=== PATIENT | female | born 1995 | race Two or more races ===

== ENCOUNTER 2023-12-11 12:48 | Emergency (ER) | payer MEDICAID, SELFPAY ==
--- NOTE | ~2023-12-11 | CT_ITS ---
EXAMINATION: CT ABDOMEN AND PELVIS WITH CONTRAST CLINICAL INFORMATION: Right lower quadrant pain. COMPARISON: None available. TECHNIQUE: Multidetector volumetric images were obtained from the superior aspect of the liver through the pubic symphysis following administration 85 mL of Omnipaque 350 intravenous contrast. Sagittal and coronal reformatted images were obtained on the technologist's workstation. Oral contrast: No This CT examination was performed using dose optimization techniques as appropriate, variously including the following: *Automated exposure control *Adjustment of mA and/or kV according to patient size (this includes techniques or standardized protocols for targeted exams where dose is matched to indication/reason for exam; i.e. extremities or head) *Use of iterative reconstruction technique DLP: 384 mGy-cm FINDINGS: LUNG BASES: The visualized lung bases are unremarkable. LIVER, GALLBLADDER, AND BILIARY TREE: The liver is normal in size, shape, and attenuation. No focal hepatic lesion or biliary ductal dilatation is present. The gallbladder is unremarkable with no evidence of radiopaque gallstones, gallbladder wall thickening, or obvious pericholecystic inflammatory changes. PANCREAS: Unremarkable. SPLEEN: Unremarkable. ADRENAL GLANDS: Unremarkable. KIDNEYS AND URETERS: The kidneys are normal in size, shape, and attenuation. No hydronephrosis, hydroureter, or calculi seen. No perinephric stranding. BLADDER: Unremarkable. GASTROINTESTINAL TRACT: The small and large bowel are unremarkable. The appendix is unremarkable. ABDOMINAL WALL: No significant hernia is appreciated. LYMPH NODES: Normal. VASCULAR: Unremarkable. PELVIC VISCERA: There uterus is significantly enlarged and lobular and heterogeneous with multiple apparent myometrial lesions measuring up to 8 cm. OSSEOUS STRUCTURES: Unremarkable. CT/CT abdomen pelvis w IV con IMPRESSION: 1. Significantly enlarged and lobular uterus with multiple apparent myometrial lesions measuring up to 8 cm. This may represent multiple fibroids. Recommend pelvic ultrasound for further characterization. 2. Normal appendix. Fleischner guidelines were followed.
--- NOTE | ~2023-12-11 | US_ITS ---
EXAMINATION: US PELVIS CLINICAL INFORMATION: Lower abdominal pain COMPARISON: None available. TECHNIQUE: Ultrasound of the pelvis is performed using both transabdominal and transvaginal transducers along with Doppler. Transvaginal imaging is performed due to inadequate visualization transabdominally. FINDINGS: Uterus: The uterus is enlarged and anteverted measuring 12.6 x 7.0 x 8.9 cm for a volume of 411 mL which includes a large mass, presumably a fibroid taking up most of the volume of the uterus measuring 8.1 x 6.6 x 7.5 cm. The double wall endometrial thickness could not be measured.. Adnexa: Both ovaries are visualized. There is normal color flow to the adnexa. There is no ovarian torsion. There is no pelvic ascites or fluid collection. Right ovary measures 4.2 x 1.5 x 2.5 cm for a volume of 8.3 mL Left ovary measures 3.7 x 2.5 x 2.2 cm for a volume of 10.7 mL which includes a 2 cm corpus luteum cyst. Incidental note is made of debris within the bladder. US/US pelvic ovarian doppler IMPRESSION: 1. Enlarged uterus with a large 8.1 cm mass, presumably a fibroid. 2. Incidental note made of debris within the bladder.
--- NOTE | ~2023-12-11 | US_ITS ---
EXAMINATION: US PELVIS CLINICAL INFORMATION: Lower abdominal pain COMPARISON: None available. TECHNIQUE: Ultrasound of the pelvis is performed using both transabdominal and transvaginal transducers along with Doppler. Transvaginal imaging is performed due to inadequate visualization transabdominally. FINDINGS: Uterus: The uterus is enlarged and anteverted measuring 12.6 x 7.0 x 8.9 cm for a volume of 411 mL which includes a large mass, presumably a fibroid taking up most of the volume of the uterus measuring 8.1 x 6.6 x 7.5 cm. The double wall endometrial thickness could not be measured.. Adnexa: Both ovaries are visualized. There is normal color flow to the adnexa. There is no ovarian torsion. There is no pelvic ascites or fluid collection. Right ovary measures 4.2 x 1.5 x 2.5 cm for a volume of 8.3 mL Left ovary measures 3.7 x 2.5 x 2.2 cm for a volume of 10.7 mL which includes a 2 cm corpus luteum cyst. Incidental note is made of debris within the bladder. US/US pelvic and transvaginal IMPRESSION: 1. Enlarged uterus with a large 8.1 cm mass, presumably a fibroid. 2. Incidental note made of debris within the bladder.
[2023-12-11 12:59] VITALS: BP 147/96; PULSE 107; RESP 20; TEMP 37.6; O2SAT 100; BMI 21.1
--- NOTE | 2023-12-11 12:59 | ED.GENADULT ---
HPI - General Adult General Chief complaint: General Medical Stated complaint: Vaginal bleeding/Dehydrated Time Seen by Provider: 12/11/23 21:58 Source: patient Mode of arrival: ambulatory Limitations: no limitations History of Present Illness HPI narrative: 28 yold with depression and anemia presents to the ED for abnormal vaginal bleeding rectal bleeding with RLQ pain. Patient states rectal bleeding for the past 2 years history of hemorrhoids. Patient states in regards to the vaginal bleeding usually history of 4 days but this month the bleeding is heavy and has been occurring for the past 10 days with right lower quadrant pain. Patient states no recent sexual activity. Patient denies any vomiting blood. Patient's rectal bleeding after straining while defecating wiping rectum. Patient states hemorrhoid went back in. Related Data Previous Rx's ?Medication ?Instructions ?Recorded cephalexin 500 mg capsule 500 mg PO Q12H 7 days #14 caps 12/12/23 hydrocortisone acetate 25 mg 25 mg IA BID #12 ea 12/12/23 rectal suppository (Anusol-HC) naproxen 500 mg tablet 500 mg PO BID PRN pain 7 days #14 12/12/23 tabs metronidazole 500 mg tablet 500 mg PO BID 7 days #14 tabs 12/14/23 Allergies Allergy/AdvReac Type Severity Reaction Status Date / Time No Known Allergies Allergy Unverified 05/26/20 18:19 [No Known Allergies*] Review of Systems Review of Systems: Rectal bleeding, vaginal bleeding, hemmhroids, abdominal pain Yes all other systems are reviewed and are negative PMFSH Social History Social History Smoked in Last 30 Days: No Use of substances other than those prescribed or required for medical reasons: No Advance Directives: No Advance Directives Information Provided: No Patient : No Physical Exam ED Vital Signs: Vital Signs - 24 hr 12/11/23 12:59 12/11/23 20:02 12/12/23 01:04 Temperature 99.6 F 97.5 F 98.3 F Pulse Rate 107 H 70 60 Respiratory Rate 20 18 18 Blood Pressure 147/96 H 141/81 H 139/84 Pulse Oximetry 100 98 100 Oxygen Delivery Method Room Air Room Air Room Air 12/12/23 02:38 Temperature 98.3 F Pulse Rate 60 Respiratory Rate 18 Blood Pressure 139/84 Pulse Oximetry 100 Oxygen Delivery Method Room Air BMI result Body Mass Index 21.1 Const General: cooperative, healthy appearing, comfortable, no acute distress, well developed, alert, awake and Physically active Orientation/consciousness: oriented to person, oriented to place, oriented to time and patient oriented x3 HENMT Head: Yes normal to inspection, Yes No palpable skull fracture present, Yes normocephalic, Yes atraumatic and No abrasion Eyes General: appearance normal, both eyes and all related structures Neck Neck: Yes normal visual inspection, Yes full ROM, Yes no lymphadenopathy, Yes no meningeal signs, Yes trachea midline, Yes supple, No anterior neck swelling and No tender Chest Chest palpation & inspection: normal inspection of the chest and normal palpation of entire chest wall Resp Effort & Inspection: normal respiratory effort and able to speak in complete sentences Auscultation: clear to auscultation bilaterally Cardio Jugular venous distension: no JVD Heart sounds: S1 normal heart sound present and S2 normal heart sound present GI Inspection: Yes normal to inspection Palpation (GI): Soft to palpation, not firm, Tenderness to palpation present (GI) in the LLQ and in the RLQ, no guarding and not rigid Other: Rectal exam negative for nadir blood. Positive for hemorrhoids. Negative for melena or black stool. Stool is brown. Positive for vaginal bleeding, but not hemoohraging. General: Yes no CVA tenderness External Female Exam: normal external appearance Speculum Exam - Vagina: vaginal bleeding (Negative for hemorrhaging bleeding) Speculum Exam - Cervix: normal appearance of the cervix and nontender Bimanual exam- vagina & uterus: No Cervical tenderness present OB/external & speculum: vaginal bleeding (Negative for hemorrhaging bleeding) Back/Spine/Pelvis Back: no CVA tenderness and No back tenderness Skin General skin exam: no rashes or lesions noted, elasticity normal and turgor normal Neuro General: oriented to person, oriented to place, oriented to time, patient oriented x3, gait normal, tone normal, moves all extremities, Normal light touch and pain sensation, no meningeal signs, no focal motor deficits, CN's II-XI intact bilaterally and normal sensation to monofilament Extrem General: Yes normal to inspection and Yes full ROM Psych Appearance: grossly normal, well kempt and not disheveled Course Course Course Narrative: This is an RME: Additional HPI, ROS, PE not included below will be deferred to primary provider. This is a [id number]-female presenting to the ER, accompanied by her mother, with multiple complaints. She reports that over the last 2 years, she has had intermittent vaginal and rectal bleeding. She states that she had recent weight loss as well as profound fatigue. Reporting severe anxiety and depression No etoh use, no drug use. Does not have PCP. She is tearful and reporting that she is struggling mentally. No SI/HI. Reporting intermittent lower abdominal pain. VSS. Mother reports that on in her 20s had colon cancer. Plan: Labs, UA Reevaluation(s) Reevaluation #1: Patient positive for Trichomonas, BV, metronidazole sent to the pharmacy. I did call patient and explained to her that upon reviewing her results she was also positive for gonorrhea. Patient did not receive treatment while in the department. She states she will try to come tomorrow or Saturday. I explained to her the sooner the better. I did do this state mandated form Patient aware . Time: 18:06 Medications Administered Discontinued Medications Generic Name Dose Route Start Last Admin Trade Name Freq PRN Reason Stop Dose Admin Iohexol 85 ml 12/12/23 01:27 12/12/23 01:27 Iohexol 350 Mg/Ml 100 Ml Infus..Btl IV 12/12/23 01:28 85 ml ONCE ONE Administration Medical Decision Making Medical Decision Making MDM Narrative: 28-year-old female presents to rectal and vaginal bleeding with lower abdominal pain. Patient history of hemorrhoids and anemia. Unknown history of fibroids or ovarian cyst. Labs drawn shows anemia which is at her baseline as per mother and patient. Patient is not pale and does not look dehydrated or weak. We will sent for abdominal CT scan in pelvic ultrasound. 2:16am: Ultrasound CT scan confirms fribroids. Patient educated on follow-up OBGYN in his sleep worrisome signs and informed to return to the ED she has them. Patient given copy of CT scan, labs, and fibroids ultrasound. Patient will follow up with therapists. no need for care team consult. patient is not suicidal or homicidal Differential Diagnosis Differential Diagnoses: The differential diagnosis associated with the presentation includes (UTI, fibroids) Admission/Observation Consideration of admission/observation: Escalation of care including admission/observation considered Lab Data [facility] Lab Attestation statement: I reviewed the patient's lab results. 12/11/23 13:29 12/11/23 13:29 Labs: Lab Results 12/11/23 12/12/23 Range/Units 13:29 00:58 WBC 7.5 (4.8-10.8) X10*3/uL RBC 3.54 L (4.20-5.50) X10*6/uL Hgb 9.3 L (12.0-16.0) g/dl Hct 29.4 L (37.0-47.0) % MCV 83.1 (80.0-98.0) fL MCH 26.3 L (27.0-33.0) pg MCHC 31.6 (31.0-35.0) g/dl RDW 16.1 H (11.0-16.0) % Plt Count 427 H (160-400) X10*3/uL MPV 10.4 (9.4-12.3) fL Immature Gran % (Auto) 0.1 (0.0-0.4) % Neut % (Auto) 66.3 (45-73) % Lymph % (Auto) 25.4 (20-40) % Tyrrell % (Auto) 6.4 (2-11) % Eos % (Auto) 1.3 (0-4) % Baso % (Auto) 0.5 (0-2) % Lymph # (Auto) 1.9 (1.2-4.9) X10*3/uL [place] # (Auto) 0.5 (0.1-1.2) X10*3/uL Eos # (Auto) 0.1 (0.0-0.4) X10*3/uL Baso # (Auto) 0.0 (0.0-0.2) X10*3/uL Abs Immat Gran (auto) 0.01 (0.00-0.03) X10*3/uL Absolute Neuts (auto) 5.0 (2.0-8.3) x10*3/uL Absolute Nucleated RBC 0.000 (0.0-0.012) X10*3/uL Nucleated RBC % (auto) 0.0 (0.0-0.2) /100WBC PT 12.1 (11.1-13.3) SEC INR 1.0 (0.9-1.1) APTT 28.7 (26.0-36.8) SEC Sodium 142 (135-145) mmol/L Potassium 4.0 (3.3-5.1) mmol/L Chloride 109 H (96-108) mmol/L Carbon Dioxide 29 (22-29) mmol/L Anion Gap 8 L (12-20) BUN 9 (9-16) mg/dL Creatinine 0.73 (0.5-1.4) mg/dL Estim Creat Clear Calc 112.1 Estimated GFR > 60 Random Glucose 115 (60-115) mg/dL Calcium 9.4 (8.4-10.2) mg/dL Magnesium 1.9 (1.6-2.6) mg/dL Total Bilirubin 0.2 (0.0-1.0) mg/dL Direct Bilirubin < 0.2 (0.0-0.5) mg/dL AST 14 (5-31) U/L ALT 8 (0-31) U/L Alkaline Phosphatase 45 (39-117) U/L Total Protein 7.2 (6.5-8.0) g/dL Albumin 4.1 (3.5-5.0) g/dL Lipase 11 (8-78) U/L Beta HCG, Quant < 2 mIU/mL Urine Color Dark Yellow Urine Appearance Cloudy Urine pH 6.0 (5.0-9.0) Ur Specific [place] >= 1.030 H (1.005-1.025) Urine Protein 100 (2+) H (Neg-Trace) mg/dL Urine Glucose (UA) Negative (Negative) mg/dL Urine Ketones Trace (Negative) mg/dL Urine Blood Large (3+) H (Negative) Urine Nitrite Negative (Negative) Ur Leukocyte Esterase Small (1+) H (Negative) Urine RBC >20 H (0-2) /HPF Urine WBC 6-10 H (0-5) /HPF Ur Squamous Epith Cells 11-20 (0-2) /HPF Urine Bacteria 1+ (None Seen) Hyaline Casts 0-2 (0-2) /LPF Urine Test NEGATIVE (NEGATIVE) Stool Occult Blood POSITIVE (NEGATIVE) Any species DNA Positive A (Negative) Chlam trachomat DNA PCR NOT DETECTED (Not Detect.) Gardnerella DNA Probe Positive A (Negative) N.gonorrhoeae DNA (PCR) DETECTED A (Not Detect.) Trichomonas DNA Probe Positive A (Negative) Independent Interpretation I performed an independent interpretation of an: Plain X-Ray and CT Scan Radiology Impression Discussion of test interpretation with radiology: I have reviewed the radiologist's reading. External Record Review External record reviewed: Other Prescription Management I considered prescription management with: Pain Medication Discharge Plan Discharge Clinical Impression: Uterine fibroid, UTI (urinary tract infection), Hemorrhoids Patient Disposition: Home, Self-Care Instructions: Hemorrhoids (ED), Urinary Tract Infection in Women (DC), Pelvic Pain in Women (ED) Additional Instructions: Return to the ED immediately for any abdominal pain, nausea, vomiting, chills, fever, profuse vaginal bleeding, lightheadedness, weakness, back pain, syncope, chest pain, shortness of breath, dysuria, rectal bleeding, rectal pain or any other concerning symptoms. Prescriptions: New naproxen 500 mg tablet 500 mg PO BID PRN (Reason: pain) 7 Days Qty: 14 0RF cephalexin 500 mg capsule 500 mg PO Q12H 7 Days Qty: 14 0RF hydrocortisone acetate [Anusol-HC] 25 mg suppository 25 mg IA BID Qty: 12 0RF metronidazole 500 mg tablet 500 mg PO BID 7 Days Qty: 14 0RF Referrals: [facility] [place] [facility] [Provider Group] (Fibroids) Stand Alone Forms: Work/School Release Interventions: ED Discharge Assessment Last Done: 12/12/23 02:38 Discharge Date/Time: 12/12/23 02:41 Print Language: Scottish
[2023-12-11 13:34] LABS: MANUAL DIFF FLAG NO
[2023-12-11 13:41] LABS: Appearance Urine Cloudy; Color Urine Dark Yellow; Glucose Urine UA Negative (Negative); Leukocyte Esterase Urine Small (1+) (Negative); Nitrite Urine Negative (Negative); Specific Gravity - Urine >= 1.030 (1.005-1.025); UMIC TRIGGER UACC YES; Urine Blood Large (3+) (Negative); Urine Ketones Trace mg/dL (Negative); Urine Protein 100 (2+) mg/dL (Neg-Trace)
[2023-12-11 13:43] LABS: UPreg QC Valid YES; Urine Pregnancy NEGATIVE (NEGATIVE)
[2023-12-11 13:46] LABS: Bacteria Urine 1+ (None Seen); Hyaline Casts Urine 0-2 /LPF (0-2); RBC Urine >20 /HPF (0-2); UACC Culture Trigger YES
[2023-12-11 13:48] LABS: Basophils Percent Auto 0.5 % (0-2); Eosinophils Absolute Auto 0.1 X10*3/uL (0.0-0.4); Eosinophils Percent Auto 1.3 % (0-4); Hematocrit 29.4 % (37.0-47.0); Hemoglobin 9.3 g/dl (12.0-16.0); Imm Gran Abs Auto 0.01 X10*3/uL (0.00-0.03); Imm Gran Pct Auto 0.1 % (0.0-0.4); Lymphocytes Absolute Auto 1.9 X10*3/uL (1.2-4.9); Lymphocytes Percent Auto 25.4 % (20-40); Mean Corpuscular HGB Conc 31.6 g/dl (31.0-35.0); Mean Corpuscular Hemoglobin 26.3 pg (27.0-33.0); Mean Corpuscular Volume 83.1 fL (80.0-98.0); Mean Platelet Volume 10.4 fL (9.4-12.3); Monocytes Absolute Auto 0.5 X10*3/uL (0.1-1.2); Monocytes Percent Auto 6.4 % (2-11); Neutrophils Percent Auto 66.3 % (45-73); Platelet Count 427 X10*3/uL (160-400); Prothrombin Time 12.1 SEC (11.1-13.3); Red Blood Count 3.54 X10*6/uL (4.20-5.50); Red Cell Distribution Width 16.1 % (11.0-16.0); White Blood Count 7.5 X10*3/uL (4.8-10.8)
[2023-12-11 13:51] LABS: Partial Thromboplastin Time 28.7 SEC (26.0-36.8)
[2023-12-11 13:59] LABS: Alanine Aminotransferase 8 U/L (0-31); Albumin Level 4.1 g/dL (3.5-5.0); Alkaline Phosphatase 45 U/L (39-117); Anion Gap 8 (12-20); Aspartate Amino Transferase 14 U/L (5-31); Bilirubin Direct < 0.2 mg/dL (0.0-0.5); Bilirubin Total 0.2 mg/dL (0.0-1.0); Blood Urea Nitrogen 9 mg/dL (9-16); Calcium 9.4 mg/dL (8.4-10.2); Carbon Dioxide 29 mmol/L (22-29); Chloride 109 mmol/L (96-108); Creatinine Clr Calc Pharmacy 112.1; Estimated Glomerular Filt Rate > 60; Glucose Random 115 mg/dL (60-115); Lipase 11 U/L (8-78); Magnesium 1.9 mg/dL (1.6-2.6); Sodium 142 mmol/L (135-145); Total Protein 7.2 g/dL (6.5-8.0)
[2023-12-11 14:04] LABS: HCG Quantitative < 2 mIU/mL
[2023-12-11 20:02] VITALS: BP 141/81; PULSE 70; RESP 18; TEMP 36.4; O2SAT 98
--- NOTE | 2023-12-12 01:02 | PC.NURSE ---
assumed care of pt, pt resting in stretcher, no acute distress noted. IV access obtained, 20G placed in left AC. pt awaiting CT at this time.
[2023-12-12 01:04] VITALS: BP 139/84; PULSE 60; RESP 18; TEMP 36.8; O2SAT 100
[2023-12-12 01:15] LABS: OBS Int Ctl Valid YES; OBS1 POSITIVE (NEGATIVE)
[2023-12-12] MEDS: iohexoL 350 MG/ML 100 ML INFUS..BTL 85 ML IV (01:27)
[2023-12-12 02:36] LABS: CT PCR NOT DETECTED (Not Detect.); NG PCR DETECTED (Not Detect.)
[2023-12-12 02:38] VITALS: BP 139/84; PULSE 60; RESP 18; TEMP 36.8; O2SAT 100
[2023-12-12 12:58] LABS: BV Int Neg Control Negative (Negative); BV Int Pos Control Positive (Positive)
== END 2023-12-12 02:41 | disposition home or self-care (01) ==
PROVIDERS: Physician Assistant; Physician Assistant Medical; Emergency Provider Internal Medicine
DX: N39.0 Urinary tract infection, site not specified (principal); D25.9 Leiomyoma of uterus, unspecified; K64.9 Unspecified hemorrhoids; A59.01 Trichomonal vulvovaginitis; A54.9 Gonococcal infection, unspecified
CPT/HCPCS: 0353U; 36415; 74177; 76830; 76856; 80048; 80076; 81001; 81025; 82272; 83690; 83735; 84702; 85025; 85610; 85730; 87086; 87480; 87510; 87660; 93975; 99284; Q9967

== ENCOUNTER 2023-12-15 07:46 | Emergency (ER) | payer MEDICAID, SELFPAY ==
[2023-12-15 07:49] VITALS: BP 127/76; PULSE 103; RESP 18; TEMP 36.6; O2SAT 100; BMI 21.3
--- NOTE | 2023-12-15 08:07 | ED_ITS ---
HPI - Female Genitourinary General Chief complaint: Urogenital-Female Stated complaint: Abnormal labs Time Seen by Provider: 12/15/23 08:07 Source: patient Mode of arrival: ambulatory Limitations: no limitations History of Present Illness HPI Narrative: Patient is a 28-year-old female presenting to the emergency department stating that she received a call from 1 of the ED providers yesterday advising her to return to the emergency department to be treated for gonorrhea. Patient also states that she has been unable to fill her other prescribed medications due to insurance issues. MD elicited complaint: other (positive STI) Onset (ago): day(s) Sexual activity: Yes Patient : No Related Data Previous Rx's ?Medication ?Instructions ?Recorded cephalexin 500 mg capsule 500 mg PO Q12H 7 days #14 caps 12/12/23 hydrocortisone acetate 25 mg 25 mg IN BID #12 ea 12/12/23 rectal suppository (Anusol-HC) naproxen 500 mg tablet 500 mg PO BID PRN pain 7 days #14 12/12/23 tabs metronidazole 500 mg tablet 500 mg PO BID 7 days #14 tabs 12/14/23 Allergies Allergy/AdvReac Type Severity Reaction Status Date / Time No Known Allergies Allergy Verified 12/15/23 07:51 [No Known Allergies*] Review of Systems Review of Systems: As per HPI. Yes all other systems are reviewed and are negative Constitutional: Constitutional: Reports as per HPI [facility] Social History Social History Advance Directives: No Advance Directives Information Provided: Yes Physical Exam Vital Signs: Vital Signs: Last Vital Signs Temp 97.8 F 12/15/23 07:49 Pulse 103 H 12/15/23 07:49 Resp 18 12/15/23 07:49 BP 127/76 12/15/23 07:49 Pulse Ox 100 12/15/23 07:49 O2 Del Method Room Air 12/15/23 07:49 BMI result Body Mass Index 21.3 Vital signs have been reviewed and appear to be correct. Blood pressure normal. Heart rate slightly tachycardic. Respiratory rate normal. Temperature normal. Oxygen saturation normal. Const: General: cooperative, healthy appearing and no acute distress Orientation/consciousness: oriented to person, oriented to place, oriented to time and patient oriented x3 Limitations: no limitations HEENT: Head: Yes normocephalic and Yes atraumatic Ears: external ears normal General nose exam: Normal external nose present Face and sinus: Yes face symmetric Mouth: oropharynx normal and moist mucous membranes Throat: Yes uvula midline Eyes: Pupils: Equal, round and reactive pupils present Neck: Neck: Yes normal visual inspection and Yes supple Resp: Effort & Inspection: normal respiratory effort and able to speak in complete sentences Auscultation: clear to auscultation bilaterally Cardio: Rate: regular rate Rhythm: regular rhythm Heart sounds: S1 normal heart sound present and S2 normal heart sound present GI: Palpation (GI): Soft to palpation and nontender Auscultation: normoactive bowel sounds : General: Yes no CVA tenderness Back/Spine/Pelvis: Back: no CVA tenderness Skin: General skin exam: elasticity normal and turgor normal Neuro: General: oriented to person, oriented to place, oriented to time, patient oriented x3, moves all extremities, no focal motor deficits and CN's II-XI intact bilaterally Cranial nerves: Yes Equal, round and reactive pupils present Cognition (Neuro): normal cognition Extrem: General: Yes full ROM, Yes no pedal edema and Yes no calf tenderness Psych: Mental Status: mental status grossly normal Affect: normal affect Thought process: Normal thought process present Medical Decision Making Medical Decision Making MDM Narrative: Patient is a 28-year-old female presenting to the emergency department stating that she received a call from 1 of the ED providers yesterday advising her to return to the emergency department to be treated for gonorrhea. On exam patient is awake, A+Ox3, VS WNL, afebrile, normal neurological exam without focal def icits, physical exam findings as above. Given reported symptoms and physical exam findings, initial differential includes gonorrhea. Mandated reporting form completed by notifying provider yesterday. Patient medicated with IM ceftriaxone as well as first doses of cephalexin for UTI and metronidazole for trichomonas. Patient provided with contact information for financial department to call tomorrow morning to correct insurance issue. Instructed patient to notify all sexual partners of positive results and avoid intercourse until she has completed full courses of antibiotics. Return precautions discussed at bedside. Instructed patient to keep follow-up appointment with [facility] on Saturday. Patient verbalized understanding of and agreement with plan. Differential Diagnosis Differential Diagnoses: The differential diagnosis associated with the presentation includes As per MDM. External Record Review External record reviewed: Inpatient record, Office record and Outpatient record Prescription Management I considered prescription management with: Antibiotic Discharge Plan Discharge Clinical Impression: Gonorrhea Patient Disposition: Home, Self-Care Instructions: Gonorrhea (ED), Sexually Transmitted Diseases (ED) Additional Instructions: You were treated for gonorrhea in the emergency department today with a 1 time dose of antibiotics. Use fall partners of these positive results. You should refrain from sexual intercourse until you have completed the full course of your other antibiotics which were prescribed to you during previous visit. You were provided with contact information for the financial department to correct your insurance issues, please call their office 1st thing tomorrow morning. Follow- up with your primary care provider and [employer] [employer] [employer] [facility]. Return to the emergency department for severe pain, persistent vomiting, fever, or any other concerning symptoms. Prescriptions: No Action naproxen 500 mg tablet 500 mg PO BID PRN (Reason: pain) 7 Days Qty: 14 0RF cephalexin 500 mg capsule 500 mg PO Q12H 7 Days Qty: 14 0RF hydrocortisone acetate [Anusol-HC] 25 mg suppository 25 mg IN BID Qty: 12 0RF metronidazole 500 mg tablet 500 mg PO BID 7 Days Qty: 14 0RF Print Language: Trinid[place]
[2023-12-15] MEDS: cephALEXin 500 MG CAPSULE PO (08:43)
[2023-12-15] MEDS: metroNIDAZOLE 500 MG TABLET PO (08:43)
[2023-12-15] MEDS: cefTRIAXone sodium 500 MG, Lidocaine HCl 1 % MPF 1 ML IM (08:43)
[2023-12-15 09:00] VITALS: BP 127/76; PULSE 103; RESP 18; TEMP 36.6; O2SAT 100
== END 2023-12-15 09:01 | disposition home or self-care (01) ==
PROVIDERS: Emergency Provider Student in an Organized Health Care Education/Training Program
DX: A54.9 Gonococcal infection, unspecified (principal)
CPT/HCPCS: 96372; 99282; 99284; J0696

== ENCOUNTER 2024-08-18 13:54 | Emergency (ER) | payer OTHER, SELFPAY ==
[2024-08-18 14:28] VITALS: BP 124/82; PULSE 100; RESP 20; TEMP 36.9; O2SAT 100; BMI 23.5
--- NOTE | 2024-08-18 14:33 | ED.GENADULT ---
HPI - General Adult General Chief complaint: Skin/Abscess/Foreign Body Stated complaint: Bug bite R arm? Time Seen by Provider: 08/18/24 16:02 Source: patient Mode of arrival: ambulatory Limitations: no limitations History of Present Illness ED Provider: Clarisa HPI narrative: Patient is a 29-year-old female presenting to the emergency department with complaint of rash since Saturday. States that she was out on Saturday night and felt lightheaded so she went into a men's bathroom to lay down. States that she put her arm on the floor to rest her head on so she would not not have to put her head on the floor. On Saturday she noted 1 red bump to right upper arm. Later in the day she noted several other red bumps to her arms. The following day she noted red bumps to her legs and back. 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 States that at times she experiences bleeding related to this tumor, but it is not currently bleeding. States tumor is to her genital area but will not elaborate, states she is here for the rash. Has been taking Benadryl for itching, states rash is very pruritic. complaint: rash Onset (ago): day(s) Associated symptoms: denies other symptoms Treatments prior to arrival: other Related Data Previous Rx's ?Medication ?Instructions ?Recorded cephalexin 500 mg capsule 500 mg PO Q12H 7 days #14 caps 12/12/23 hydrocortisone acetate 25 mg 25 mg [place] BID #12 ea 12/12/23 rectal suppository (Anusol-HC) naproxen 500 mg tablet 500 mg PO BID PRN pain 7 days #14 12/12/23 tabs metronidazole 500 mg tablet 500 mg PO BID 7 days #14 tabs 12/14/23 ferrous sulfate 325 mg (65 mg 325 mg PO BID 7 days #14 tabs 08/18/24 iron) tablet permethrin 5 % topical cream 1 appl topical ONCE 1 dose #60 08/18/24 grams prednisone 20 mg tablet 40 mg (2 x 20 mg) PO DAILY #10 tabs 08/18/24 Allergies Allergy/AdvReac Type Severity Reaction Status Date / Time No Known Allergies Allergy Verified 08/18/24 14:31 [No Known Allergies*] Review of Systems Review of Systems: As per HPI Yes all other systems are reviewed and are negative Constitutional: Constitutional: Reports as per HPI [facility] Social History Social History Advance Directives: No Advance Directives Information Provided: No Physical Exam ED Vital Signs: Vital Signs - 24 hr 08/18/24 14:28 08/18/24 16:38 08/18/24 17:38 Temperature 98.5 F 98.4 F 98.4 F Pulse Rate 100 85 85 Respiratory Rate 20 16 16 Blood Pressure 124/82 145/79 H 145/79 H Pulse Oximetry 100 100 100 Oxygen Delivery Method Room Air Room Air Room Air BMI result Body Mass Index 23.5 Vital signs have been reviewed and appear to be correct. Blood pressure normal. Heart rate normal. Respiratory rate normal. Temperature normal. Oxygen saturation normal. Const General: cooperative, healthy appearing and no acute distress Orientation/consciousness: oriented to person, oriented to place, oriented to time and patient oriented x3 Limitations: no limitations HENMT Head: Yes normocephalic and Yes atraumatic Ears: external ears normal General nose exam: Normal external nose present Face and sinus: Yes face symmetric Mouth: oropharynx normal and moist mucous membranes Throat: Yes uvula midline Eyes Pupils: Equal, round and reactive pupils present Neck Neck: Yes normal visual inspection and Yes supple Resp Effort & Inspection: normal respiratory effort and able to speak in complete sentences Auscultation: clear to auscultation bilaterally Cardio Rate: regular rate Rhythm: regular rhythm Heart sounds: S1 normal heart sound present and S2 normal heart sound present GI Palpation (GI): Soft to palpation and nontender Auscultation: normoactive bowel sounds General: Yes no CVA tenderness Back/Spine/Pelvis Back: no CVA tenderness Skin Other: multiple singular erythematous papules to arms, legs, lower back General skin exam: elasticity normal and turgor normal Neuro General: oriented to person, oriented to place, oriented to time, patient oriented x3, moves all extremities, no focal motor deficits and CN's II-XI intact bilaterally Cranial nerves: Yes Equal, round and reactive pupils present Cognition (Neuro): normal cognition Extrem General: Yes full ROM, Yes no pedal edema and Yes no calf tenderness Psych Mental Status: mental status grossly normal Affect: normal affect Thought process: Normal thought process present Course Course Course Narrative: This is an RME: Additional HPI, ROS, PE not included below will be deferred to primary provider. RME assessment and note performed by: Sarah Mendez PA-C This is a [id number]-female who presents emergency department with concerns for bug bites. Patient reports that she is concerned that the ?bugs are inside of her?. She states that she laid on the bathroom floor that did not belong her and the concerns are that she now is septic from the bugs. She is tachycardic between 100-110 given these findings, will obtain basic labs, and EKG. Scattered wheezes noted throughout body. She states that the itchiness worsens at night. Plan: Labs, EKG, further ER evaluation Medical Decision Making Medical Decision Making [facility] Narrative: Patient is a 29-year-old female presenting to the emergency department with complaint of rash since Saturday. On exam patient is awake, A+Ox3, VS WNL, afebrile, normal neurological exam without focal deficits, physical exam findings as above. Given reported symptoms and physical exam findings, initial differential includes contact dermatitis, atopic dermatitis, scabies, bedbugs. Labs notable for anemia not at transfusable level, likely due to reported mass. Patient stating she would like a referral to surgery/ELECTRICAL DESIGN ENGINEER as she would like to be evaluated for management of her tumor. Patient very vague and giving minimal answers to questions regarding this. Feel rash is unlikely due to scabies, as it does not appear consistent with scabies, but patient specifically requesting treatment for this. Will send prescription for permethrin cream. Advised patient she should also continue using an [id number] antihistamine medication. Patient stable for discharge at this time. Will send prescription for iron supplement. Advised patient she should have her labs (CBC) rechecked within the next week. Return precautions discussed with patient at bedside. Patient verbalized understanding of and agreement with plan. Differential Diagnosis Differential Diagnoses: The differential diagnosis associated with the presentation includes As per MDM. Lab Data [facility] Lab Attestation statement: I reviewed the patient's lab results. As per MDM. 08/18/24 14:55 08/18/24 14:55 Labs: Lab Results 08/18/24 Range/Units 14:55 WBC 6.5 (4.8-10.8) X10*3/uL RBC 3.78 L (4.20-5.50) X10*6/uL Hgb 8.1 L (12.0-16.0) g/dl Hct 27.7 L (37.0-47.0) % MCV 73.3 L (80.0-98.0) fL MCH 21.4 L (27.0-33.0) pg MCHC 29.2 L (31.0-35.0) g/dl RDW 18.6 H (11.0-16.0) % Plt Count 524 H (160-400) X10*3/uL MPV 8.9 L (9.4-12.3) fL Immature Gran % (Auto) 0.5 H (0.0-0.4) % Neut % (Auto) 57.7 (45-73) % Lymph % (Auto) 30.0 (20-40) % [place] % (Auto) 8.6 (2-11) % Eos % (Auto) 2.6 (0-4) % Baso % (Auto) 0.6 (0-2) % Lymph # (Auto) 2.0 (1.2-4.9) X10*3/uL [place] # (Auto) 0.6 (0.1-1.2) X10*3/uL Eos # (Auto) 0.2 (0.0-0.4) X10*3/uL Baso # (Auto) 0.0 (0.0-0.2) X10*3/uL Abs Immat Gran (auto) 0.03 (0.00-0.03) X10*3/uL Absolute Neuts (auto) 3.7 (2.0-8.3) x10*3/uL Absolute Nucleated RBC 0.000 (0.0-0.012) X10*3/uL Nucleated RBC % (auto) 0.0 (0.0-0.2) /100WBC Sodium 140 (135-145) mmol/L Potassium 4.2 (3.3-5.1) mmol/L Chloride 110 H (96-108) mmol/L Carbon Dioxide 24 (22-29) mmol/L Anion Gap 10 L (12-20) BUN 17 H (9-16) mg/dL Creatinine 0.75 (0.5-1.4) mg/dL Estim Creat Clear Calc 105.7 Estimated GFR > 60 Random Glucose 87 (60-115) mg/dL Calcium 9.0 (8.4-10.2) mg/dL Magnesium 1.9 (1.6-2.6) mg/dL Total Bilirubin 0.2 (0.0-1.0) mg/dL Direct Bilirubin < 0.2 (0.0-0.5) mg/dL AST 19 (5-31) U/L ALT 10 (0-31) U/L Alkaline Phosphatase 43 (39-117) U/L Troponin I High Sens < 2.7 (<3.5-17.0) ng/L Total Protein 6.7 (6.5-8.0) g/dL Albumin 4.1 (3.5-5.0) g/dL Beta HCG, Quant < 2 mIU/mL External Record Review External record reviewed: Inpatient record, Office record and Outpatient record Prescription Management I considered prescription management with: Other Discharge Plan Discharge Clinical Impression: Rash, Anemia Patient Disposition: Home, Self-Care Instructions: Contact Dermatitis (DC), Scabies (ED) Additional Instructions: You were evaluated in the emergency department today for a rash. You are being prescribed Permethrin cream which treats scabies. Apply the cream as prescribed. You are being prescribed a course of a steroid called prednisone to decrease inflammation. We also recommend that you take a daily antihistamine such as loratadine (Claritin) or cetirizine (Zyrtec). You can also add over the counter famotidine (Pepcid) which is a different type of antihistamine. You can apply a thick unscented lotion to the affected areas such as Eucerine or Vanicream several times daily. Your bloodwork showed anemia today. You are being prescribed an iron supplement, but we recommend that you have your labs (CBC) rechecked this week. Follow up with your primary care provider this week. If your symptoms do not improve, follow up with a clinical informatics specialist. Return to the emergency department if you develop difficulty breathing or shortness of breath, swelling to lips, tongue, fever, rash inside your mouth or to your palms/soles or any other concerning symptoms. Prescriptions: New prednisone 20 mg tablet 40 mg PO DAILY Qty: 10 0RF permethrin 5 % cream 1 appl topical ONCE Qty: 60 0RF ferrous sulfate 325 mg (65 mg iron) tablet 325 mg PO BID 7 Days Qty: 14 0RF No Action naproxen 500 mg tablet 500 mg PO BID PRN (Reason: pain) 7 Days Qty: 14 0RF cephalexin 500 mg capsule 500 mg PO Q12H 7 Days Qty: 14 0RF hydrocortisone acetate [Anusol-HC] 25 mg suppository 25 mg PA BID Qty: 12 0RF metronidazole 500 mg tablet 500 mg PO BID 7 Days Qty: 14 0RF Referrals: [facility] [place] [facility] [Provider Group] Mahesh Johnson MD [Physician] - Interventions: ED Discharge Assessment Last Done: 08/18/24 17:38 Print Language: New Zealander
--- NOTE | 2024-08-18 14:36 | ECG_ITS ---
Test Reason : tachycardia Blood Pressure : / mmHG Vent. Rate : 105 BPM Atrial Rate : 105 BPM P-R Int : 120 ms QRS Dur : 084 ms QT Int : 340 ms P-R-T Axes : 076 058 046 degrees QTc Int : 449 ms Sinus tachycardia Otherwise normal ECG No previous ECGs available Referred By: Sarah Mendez Electronically Signed By:IMER COATES MD
[2024-08-18 15:02] LABS: MANUAL DIFF FLAG NO
[2024-08-18 15:12] LABS: Basophils Percent Auto 0.6 % (0-2); Eosinophils Absolute Auto 0.2 X10*3/uL (0.0-0.4); Eosinophils Percent Auto 2.6 % (0-4); Hematocrit 27.7 % (37.0-47.0); Hemoglobin 8.1 g/dl (12.0-16.0); Imm Gran Abs Auto 0.03 X10*3/uL (0.00-0.03); Imm Gran Pct Auto 0.5 % (0.0-0.4); Mean Corpuscular HGB Conc 29.2 g/dl (31.0-35.0); Mean Corpuscular Hemoglobin 21.4 pg (27.0-33.0); Mean Corpuscular Volume 73.3 fL (80.0-98.0); Mean Platelet Volume 8.9 fL (9.4-12.3); Monocytes Absolute Auto 0.6 X10*3/uL (0.1-1.2); Monocytes Percent Auto 8.6 % (2-11); Neutrophils Absolute Auto 3.7 x10*3/uL (2.0-8.3); Neutrophils Percent Auto 57.7 % (45-73); Platelet Count 524 X10*3/uL (160-400); Red Blood Count 3.78 X10*6/uL (4.20-5.50); Red Cell Distribution Width 18.6 % (11.0-16.0); White Blood Count 6.5 X10*3/uL (4.8-10.8)
[2024-08-18 15:24] LABS: Albumin Level 4.1 g/dL (3.5-5.0); Anion Gap 10 (12-20); Aspartate Amino Transferase 19 U/L (5-31); Bilirubin Direct < 0.2 mg/dL (0.0-0.5); Bilirubin Total 0.2 mg/dL (0.0-1.0); Blood Urea Nitrogen 17 mg/dL (9-16); Carbon Dioxide 24 mmol/L (22-29); Chloride 110 mmol/L (96-108); Creatinine Clr Calc Pharmacy 105.7; Estimated Glomerular Filt Rate > 60; Glucose Random 87 mg/dL (60-115); Magnesium 1.9 mg/dL (1.6-2.6); Potassium 4.2 mmol/L (3.3-5.1); Sodium 140 mmol/L (135-145); Total Protein 6.7 g/dL (6.5-8.0)
[2024-08-18 15:31] LABS: HCG Quantitative < 2 mIU/mL; Troponin-I High Sensitivity < 2.7 ng/L (<3.5-17.0)
[2024-08-18 16:17] LABS: Alanine Aminotransferase 10 U/L (0-31); Alkaline Phosphatase 43 U/L (39-117)
[2024-08-18 16:38] VITALS: BP 145/79; PULSE 85; RESP 16; TEMP 36.9; O2SAT 100
[2024-08-18 17:38] VITALS: BP 145/79; PULSE 85; RESP 16; TEMP 36.9; O2SAT 100
== END 2024-08-18 17:49 | disposition home or self-care (01) ==
PROVIDERS: Physician Assistant Medical; Emergency Provider Internal Medicine
DX: R21 Rash and other nonspecific skin eruption (principal); D64.9 Anemia, unspecified; R00.0 Tachycardia, unspecified; R42 Dizziness and giddiness
CPT/HCPCS: 36415; 80048; 80076; 83735; 84484; 84702; 85025; 93005; 99283; 99284

== ENCOUNTER → 2024-08-18 14:36 | Outpatient (BNV) | payer OTHER, SELFPAY | PROVIDERS: Emergency Provider Internal Medicine; Visit Provider Internal Medicine Cardiovascular Disease | DX: R00.0 Tachycardia, unspecified (principal) | CPT/HCPCS: 93010 ==

== ENCOUNTER 2024-10-11 12:32 | Emergency (ER) | payer OTHER, SELFPAY ==
--- NOTE | ~2024-10-11 | US_ITS ---
CLINICAL HISTORY: pelvic pain, reported previous mass, fevers US pelvis transvaginal Comparison: 12/11/2023 Findings: Transvaginal scanning performed. Anteverted uterus is 10.8 cm length. Normal myometrium. No endometrial lesion, 4.0 mm thickness. There is a subserosal 10.0 x 7.5 x 6.7 cm leiomyoma, previously measuring 7.5 x 6.6 x 0.1 cm. There is a intramural 1.0 x 0.9 x 0.8 cm leiomyoma not seen on the previous study. Right ovary 3.9 x 3.0 x 2.3 cm. Left ovary 2.5 x 2.7 x 1.8 cm. Normal color Doppler of both ovaries. No free fluid. IMPRESSION: 1. Uterine leiomyomata This document has been electronically signed by: Gil Monroy MD on 10/11/2024 16:06:04
[2024-10-11 12:41] VITALS: BP 148/86; PULSE 136; RESP 18; TEMP 36.8; O2SAT 100; BMI 20.9
--- NOTE | 2024-10-11 12:45 | ED.GENADULT ---
HPI - General Adult General Chief complaint: General Medical Stated complaint: fever and blood loss Time Seen by Provider: 10/11/24 13:24 Source: patient Mode of arrival: ambulatory Limitations: no limitations History of Present Illness ED Provider: Norbert Lagos DO HPI narrative: 29-year-old female with no significant past medical history presents to the ED due to evaluation of multiple symptoms which includes recent fatigue, blood per rectum with concerns for prolapse, reports of previous pelvic mass the size of a ?peach , fever of 103 degrees F a couple of days ago, recent vaginal bleeding despite having her period 2 weeks ago, unprotected sex with a new male partner approximately 1 month ago, left-sided abdominal pain and diarrhea today. Patient is concerned that she is anemic. Her hemoglobin from 08/18/2024 was 8.1. 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 Related Data Previous Rx's ?Medication ?Instructions ?Recorded cephalexin 500 mg capsule 500 mg PO Q12H 7 days #14 caps 12/12/23 hydrocortisone acetate 25 mg 25 mg [place] BID #12 ea 12/12/23 rectal suppository (Anusol-HC) naproxen 500 mg tablet 500 mg PO BID PRN pain 7 days #14 12/12/23 tabs metronidazole 500 mg tablet 500 mg PO BID 7 days #14 tabs 12/14/23 ferrous sulfate 325 mg (65 mg 325 mg PO BID 7 days #14 tabs 08/18/24 iron) tablet permethrin 5 % topical cream 1 appl topical ONCE 1 dose #60 08/18/24 grams prednisone 20 mg tablet 40 mg (2 x 20 mg) PO DAILY #10 tabs 08/18/24 Allergies Allergy/AdvReac Type Severity Reaction Status Date / Time No Known Allergies Allergy Verified 10/11/24 12:44 [No Known Allergies*] Review of Systems Review of Systems: Yes all other systems are reviewed and are negative Physical Exam ED Vital Signs: Vital Signs - 24 hr 10/11/24 12:41 10/11/24 17:00 10/11/24 17:06 Temperature 98.2 F 98.8 F 0 F L Pulse Rate 136 H 92 84 Respiratory Rate 18 14 18 Blood Pressure 148/86 H 130/79 130/79 Pulse Oximetry 100 99 97 Oxygen Delivery Method Room Air Room Air Room Air BMI result Body Mass Index 20.9 Constitutional: ?Alert, oriented, speaking in full sentences, appears somewhat anxious HEENT: ?Normocephalic, atraumatic. ?Moist mucous membranes Eyes: ?PERRL, EOMI Neck: ?Supple, nontender Chest: ?No chest wall tenderness Respiratory: ?Lungs clear to auscultation, no increased work of breathing Cardio: ?Regular rate and rhythm, no murmur, 2+ radial and DP pulses symmetrically, capillary refill is less than 3 seconds GI: ?Soft, nondistended, mild tenderness to palpation of the left-sided abdomen not located in the adnexa. Rectal exam performed with female teachers' aideRigoberto, present. There is an external hemorrhoid. No stool in the rectal vault. No blood. No internal hemorrhoids. : Pelvic speculum and bimanual exam performed with female teachers' aideRigoberto, present. There is a small amount of bleeding located in the left adnexa. No blood from the cervical os. No purulent discharge noted. No cervical motion tenderness. Back: ?Normal range of motion, nontender Skin: ?No rash, no lesions Neuro: ?Alert and oriented to person, place and time, moves all 4 extremities, no focal deficits Extremities: ?No swelling or tenderness, full range of motion Psych: ?Calm, alert and cooperative, appropriate behavior Course Course Course Narrative: RME: 29 yold female presents to the ED fever, vaginal bleeding,abdominal pain, sneezing, and rectal bleeding. Patient is tachyardic. labs, EKG ordered. Medical Decision Making Medical Decision Making MDM Narrative: Patient presenting with multiple symptoms as above. CT imaging from 12/12/2023 reviewed and shows a significantly enlarged and lobular uterus with multiple myometrial lesions measuring up to 8 cm likely representing fibroids. Ultrasound performed at that time to further characterize showed an enlarged uterus with a large 8.1 cm mass presumably a fibroid. Differential diagnosis today includes HIV, pelvic inflammatory disorder, tubo-ovarian abscess,, vaginal bleeding in the setting of fibroids. Patient is not anemic today requiring blood transfusions. She is hCG negative. Her vital signs show mild hypertension and tachycardia, otherwise unremarkable. No fever recorded here on initial vital sign check. Patient accepts offered pelvic exam to further evaluate and we will also evaluate with pelvic ultrasound. Pelvic ultrasound shows an enlarging fibroid. The patient is aware and will follow up with straddle truck operator for definitive care. She does not have profuse bleeding today, not requiring transfusions. She has no clinical findings of PID but swabs have been sent and the patient understands she will receive a call back for any positive results. She is also pending HIV and syphilis screening labs at time of discharge. She voices understanding to return with any persistent profuse vaginal bleeding, persistent fevers or any other acute changes or concerns. Admission/Observation Consideration of admission/observation: Escalation of care including admission/observation considered Lab Data MDM Lab Attestation statement: I reviewed the patient's lab results. Improved from baseline anemia with a hemoglobin of 11.6, prior 8.1 over 1 month ago, no leukocytosis, borderline leukopenia, unremarkable coags, no thrombocytopenia, borderline hypokalemia at 3.4, otherwise unremarkable CMP, negative troponin and negative beta hCG. There is blood without signs of cystitis per urinalysis. 10/11/24 13:01 10/11/24 13:01 Labs: Lab Results 10/11/24 10/11/24 10/11/24 Range/Units 13:01 13:02 13:35 WBC 3.6 L (4.8-10.8) X10*3/uL RBC 4.74 D (4.20-5.50) X10*6/uL Hgb 11.6 L D (12.0-16.0) g/dl Hct 36.2 L D (37.0-47.0) % MCV 76.4 L (80.0-98.0) fL MCH 24.5 L (27.0-33.0) pg MCHC 32.0 (31.0-35.0) g/dl RDW 23.6 H (11.0-16.0) % Plt Count 355 D (160-400) X10*3/uL MPV 9.4 (9.4-12.3) fL Immature Gran % (Auto) 0.3 (0.0-0.4) % Neut % (Auto) 58.5 (45-73) % Lymph % (Auto) 30.9 (20-40) % [place] % (Auto) 9.7 (2-11) % Eos % (Auto) 0.3 (0-4) % Baso % (Auto) 0.3 (0-2) % Lymph # (Auto) 1.1 L (1.2-4.9) X10*3/uL [place] # (Auto) 0.4 (0.1-1.2) X10*3/uL Eos # (Auto) 0.0 (0.0-0.4) X10*3/uL Baso # (Auto) 0.0 (0.0-0.2) X10*3/uL Abs Immat Gran (auto) 0.01 (0.00-0.03) X10*3/uL Absolute Neuts (auto) 2.1 (2.0-8.3) x10*3/uL Absolute Nucleated RBC 0.000 (0.0-0.012) X10*3/uL Nucleated RBC % (auto) 0.0 (0.0-0.2) /100WBC PT 11.4 (10.9-12.4) SEC INR 1.0 (0.9-1.1) APTT 30.9 (26.0-36.8) SEC Sodium 139 (135-145) mmol/L Potassium 3.4 (3.3-5.1) mmol/L Chloride 106 (96-108) mmol/L Carbon Dioxide 21 L (22-29) mmol/L Anion Gap 15 (12-20) BUN 11 (9-16) mg/dL Creatinine 0.65 (0.5-1.4) mg/dL Estim Creat Clear Calc 123.7 Estimated GFR > 60 Random Glucose 104 (60-115) mg/dL Calcium 8.7 (8.4-10.2) mg/dL Total Bilirubin 0.2 (0.0-1.0) mg/dL AST 26 (5-31) U/L ALT 24 (0-31) U/L Alkaline Phosphatase 45 (39-117) U/L Troponin I High Sens < 2.7 (<3.5-17.0) ng/L Total Protein 8.3 H (6.5-8.0) g/dL Albumin 4.5 (3.5-5.0) g/dL Beta HCG, Quant < 2 mIU/mL Hold Red Top Urine Color Other A Urine Appearance Hazy Urine pH 5.5 (5.0-9.0) Ur Specific [place] > 1.030 H (1.005-1.025) Urine Protein 300 (3+) H (Neg-Trace) mg/dL Urine Glucose (UA) Negative (Negative) mg/dL Urine Ketones 80 (Negative) mg/dL Urine Blood Large (3+) H (Negative) Urine Nitrite Negative (Negative) Ur Leukocyte Esterase Small (1+) H (Negative) Urine RBC >20 H (0-2) /HPF Urine WBC 6-10 (0-5) /HPF Ur Squamous Epith Cells 11-20 (0-2) /HPF Urine Bacteria Trace (None Seen) Hyaline Casts 3-5 (0-2) /LPF Urine Test NEGATIVE (NEGATIVE) Blood Type O Positive Antibody Screen NEGATIVE 10/11/24 Range/Units 16:02 WBC (4.8-10.8) X10*3/uL RBC (4.20-5.50) X10*6/uL Hgb (12.0-16.0) g/dl Hct (37.0-47.0) % MCV (80.0-98.0) fL MCH (27.0-33.0) pg MCHC (31.0-35.0) g/dl RDW (11.0-16.0) % Plt Count (160-400) X10*3/uL MPV (9.4-12.3) fL Immature Gran % (Auto) (0.0-0.4) % Neut % (Auto) (45-73) % Lymph % (Auto) (20-40) % [place] % (Auto) (2-11) % Eos % (Auto) (0-4) % Baso % (Auto) (0-2) % Lymph # (Auto) (1.2-4.9) X10*3/uL [place] # (Auto) (0.1-1.2) X10*3/uL Eos # (Auto) (0.0-0.4) X10*3/uL Baso # (Auto) (0.0-0.2) X10*3/uL Abs Immat Gran (auto) (0.00-0.03) X10*3/uL Absolute Neuts (auto) (2.0-8.3) x10*3/uL Absolute Nucleated RBC (0.0-0.012) X10*3/uL Nucleated RBC % (auto) (0.0-0.2) /100WBC PT (10.9-12.4) SEC INR (0.9-1.1) APTT (26.0-36.8) SEC Sodium (135-145) mmol/L Potassium (3.3-5.1) mmol/L Chloride (96-108) mmol/L Carbon Dioxide (22-29) mmol/L Anion Gap (12-20) BUN (9-16) mg/dL Creatinine (0.5-1.4) mg/dL Estim Creat Clear Calc Estimated GFR Random Glucose (60-115) mg/dL Calcium (8.4-10.2) mg/dL Total Bilirubin (0.0-1.0) mg/dL AST (5-31) U/L ALT (0-31) U/L Alkaline Phosphatase (39-117) U/L Troponin I High Sens (<3.5-17.0) ng/L Total Protein (6.5-8.0) g/dL Albumin (3.5-5.0) g/dL Beta HCG, Quant mIU/mL Hold Red Top See Note Urine Color Urine Appearance Urine pH (5.0-9.0) Ur Specific [place] (1.005-1.025) Urine Protein (Neg-Trace) mg/dL Urine Glucose (UA) (Negative) mg/dL Urine Ketones (Negative) mg/dL Urine Blood (Negative) Urine Nitrite (Negative) Ur Leukocyte Esterase (Negative) Urine RBC (0-2) /HPF Urine WBC (0-5) /HPF Ur Squamous Epith Cells (0-2) /HPF Urine Bacteria (None Seen) Hyaline Casts (0-2) /LPF Urine Test (NEGATIVE) Blood Type Antibody Screen Independent Interpretation I performed an independent interpretation of an: EKG Interpretation: Normal sinus rhythm at 95 beats per minute, normal axis, unremarkable intervals, no diagnostic ST wave abnormalities, some subtle ST depression in the anterior leads and lead to, biatrial enlargement, borderline LVH, compared to prior dated 08/18/2024 there are no significant changes. Discharge Plan Discharge Clinical Impression: Abnormal vaginal bleeding, External hemorrhoid, Fibroid, uterine Patient Disposition: Home, Self-Care Instructions: Hemorrhoids (ED), Menorrhagia (ED), Myomectomy (DC) Additional Instructions: Your blood count was 11.6 today. We found no signs of sexually transmitted infection but we have swabs pending as well as HIV and syphilis screening pending. If any of these are positive, you will receive a call back for further management. Ultrasound imaging showed a small fibroid not previously seen as well as the previous fibroid that is larger. Please see the image finding results below to follow-up with an OBGYN. Please call an OBGYN tomorrow to arrange for follow-up for definitive care. return to the emergency department with any persistent profuse vaginal bleeding, persistent fevers or any other acute changes or concerns. Findings: Transvaginal scanning performed. Anteverted uterus is 10.8 cm length. Normal myometrium. No endometrial lesion, 4.0 mm thickness. There is a subserosal 10.0 x 7.5 x 6.7 cm leiomyoma, previously measuring 7.5 x 6.6 x 0.1 cm. There is a intramural 1.0 x 0.9 x 0.8 cm leiomyoma not seen on the previous study. Right ovary 3.9 x 3.0 x 2.3 cm. Left ovary 2.5 x 2.7 x 1.8 cm. Normal color Doppler of both ovaries. No free fluid. IMPRESSION: 1. Uterine leiomyomata Prescriptions: No Action naproxen 500 mg tablet 500 mg PO BID PRN (Reason: pain) 7 Days Qty: 14 0RF cephalexin 500 mg capsule 500 mg PO Q12H 7 Days Qty: 14 0RF hydrocortisone acetate [Anusol-HC] 25 mg suppository 25 mg [place] BID Qty: 12 0RF metronidazole 500 mg tablet 500 mg PO BID 7 Days Qty: 14 0RF prednisone 20 mg tablet 40 mg PO DAILY Qty: 10 0RF permethrin 5 % cream 1 appl topical ONCE Qty: 60 0RF ferrous sulfate 325 mg (65 mg iron) tablet 325 mg PO BID 7 Days Qty: 14 0RF Referrals: [facility] – [place] Family Medicine [Provider Group] [facility] [place] Women's Services [Provider Group] (Findings: Transvaginal scanning performed. Anteverted uterus is 10.8 cm length. Normal myometrium. No endometrial lesion, 4.0 mm thickness. There is a subserosal 10.0 x 7.5 x 6.7 cm leiomyoma, previously measuring 7.5 x 6.6 x 0.1 cm. There is a intramural 1.0 x 0.9 x 0.8 cm leiomyoma not seen on the previous study. Right ovary 3.9 x 3.0 x 2.3 cm. Left ovary 2.5 x 2.7 x 1.8 cm. Normal color Doppler of both ovaries. No free fluid. IMPRESSION: 1. Uterine leiomyomata) Interventions: ED Discharge Assessment Last Done: 10/11/24 17:06 Discharge Date/Time: 10/11/24 17:07 Print Language: Mauritian
--- NOTE | 2024-10-11 12:47 | ECG_ITS ---
Test Reason : SINUS TACH Blood Pressure : */* mmHG Vent. Rate : 95 BPM Atrial Rate : 95 BPM P-R Int : 114 ms QRS Dur : 74 ms QT Int : 336 ms P-R-T Axes : 79 70 54 degrees QTcB Int : 422 ms Sinus rhythm with marked sinus arrhythmia Biatrial enlargement Abnormal ECG When compared with ECG of 18-Aug-2024 14:51, No significant change was found Referred By: Phu Gaona Electronically Signed By: Shabbir Ann
[2024-10-11 13:07] LABS: MANUAL DIFF FLAG NO
[2024-10-11 13:13] LABS: Basophils Percent Auto 0.3 % (0-2); Eosinophils Percent Auto 0.3 % (0-4); Hematocrit 36.2 % (37.0-47.0); Hemoglobin 11.6 g/dl (12.0-16.0); Imm Gran Abs Auto 0.01 X10*3/uL (0.00-0.03); Imm Gran Pct Auto 0.3 % (0.0-0.4); Lymphocytes Absolute Auto 1.1 X10*3/uL (1.2-4.9); Lymphocytes Percent Auto 30.9 % (20-40); Mean Corpuscular Hemoglobin 24.5 pg (27.0-33.0); Mean Corpuscular Volume 76.4 fL (80.0-98.0); Mean Platelet Volume 9.4 fL (9.4-12.3); Monocytes Absolute Auto 0.4 X10*3/uL (0.1-1.2); Monocytes Percent Auto 9.7 % (2-11); Neutrophils Absolute Auto 2.1 x10*3/uL (2.0-8.3); Neutrophils Percent Auto 58.5 % (45-73); Platelet Count 355 X10*3/uL (160-400); Red Blood Count 4.74 X10*6/uL (4.20-5.50); Red Cell Distribution Width 23.6 % (11.0-16.0); White Blood Count 3.6 X10*3/uL (4.8-10.8)
[2024-10-11 13:21] LABS: Prothrombin Time 11.4 SEC (10.9-12.4)
[2024-10-11 13:24] LABS: Partial Thromboplastin Time 30.9 SEC (26.0-36.8)
[2024-10-11 13:31] LABS: Alanine Aminotransferase 24 U/L (0-31); Albumin Level 4.5 g/dL (3.5-5.0); Alkaline Phosphatase 45 U/L (39-117); Anion Gap 15 (12-20); Aspartate Amino Transferase 26 U/L (5-31); Bilirubin Total 0.2 mg/dL (0.0-1.0); Blood Urea Nitrogen 11 mg/dL (9-16); Calcium 8.7 mg/dL (8.4-10.2); Carbon Dioxide 21 mmol/L (22-29); Chloride 106 mmol/L (96-108); Creatinine Clr Calc Pharmacy 123.7; Estimated Glomerular Filt Rate > 60; Glucose Random 104 mg/dL (60-115); Potassium 3.4 mmol/L (3.3-5.1); Sodium 139 mmol/L (135-145); Total Protein 8.3 g/dL (6.5-8.0)
[2024-10-11 13:32] LABS: HCG Quantitative < 2 mIU/mL; Troponin-I High Sensitivity < 2.7 ng/L (<3.5-17.0)
--- NOTE | 2024-10-11 13:36 | MHC.EDTECH ---
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
[2024-10-11 13:50] LABS: Appearance Urine Hazy; Color Urine Other; Glucose Urine UA Negative (Negative); Nitrite Urine Negative (Negative); PH 5.5 (5.0-9.0); Specific Gravity - Urine > 1.030 (1.005-1.025); Urine Blood Large (3+) (Negative); Urine Ketones 80 mg/dL (Negative); Urine Protein 300 (3+) mg/dL (Neg-Trace)
[2024-10-11 13:51] LABS: Leukocyte Esterase Urine Small (1+) (Negative); UMIC TRIGGER UACC YES; UPreg QC Valid YES; Urine Pregnancy NEGATIVE (NEGATIVE)
[2024-10-11 14:01] LABS: Bacteria Urine Trace (None Seen); RBC Urine >20 /HPF (0-2); UACC Culture Trigger YES
[2024-10-11 17:00] VITALS: BP 130/79; PULSE 92; RESP 14; TEMP 37.1; O2SAT 99
[2024-10-11 17:06] VITALS: BP 130/79; PULSE 84; RESP 18; TEMP -17.7; TEMP 0; O2SAT 97
[2024-10-12 01:21] LABS: CT PCR NOT DETECTED (Not Detect.); NG PCR NOT DETECTED (Not Detect.)
[2024-10-12 09:32] LABS: HIV AB/AG Nonreactive (Nonreactive); HIV Num 1 0.07 S/CO (0.00-0.99); Syphilis Screen Nonreactive (Nonreactive)
[2024-10-12 13:15] LABS: Bacterial Vaginosis PCR POSITIVE (Negative); Candida Group PCR DETECTED (Not Detect); Candida glab krusei PCR NOT DETECTED (Not Detect); Trichomonas vaginalis PCR DETECTED (Not Detect)
[2024-10-14 00:48] LABS: Trichomonas vaginalis RNA DETECTED (NOT DETECTED)
== END 2024-10-11 17:07 | disposition home or self-care (01) ==
PROVIDERS: Physician Assistant; Emergency Provider Emergency Medicine
DX: N93.9 Abnormal uterine and vaginal bleeding, unspecified (principal); K64.4 Residual hemorrhoidal skin tags; D25.9 Leiomyoma of uterus, unspecified; R00.0 Tachycardia, unspecified; I49.8 Other specified cardiac arrhythmias; Z79.899 Other long term (current) drug therapy
CPT/HCPCS: 36415; 76830; 76856; 80053; 81001; 81025; 81515; 84484; 84702; 85025; 85610; 85730; 86780; 86850; 86900; 86901; 87086; 87389; 87491; 87591; 87661; 93005; 99283

== ENCOUNTER → 2024-10-11 12:47 | Outpatient (BNV) | payer OTHER, SELFPAY | PROVIDERS: Emergency Provider Emergency Medicine; Visit Provider Internal Medicine Cardiovascular Disease | DX: I51.7 Cardiomegaly (principal) | CPT/HCPCS: 93010 ==

== ENCOUNTER → 2024-10-11 14:30 | Outpatient (BNV) | payer OTHER, SELFPAY | PROVIDERS: Emergency Provider Emergency Medicine; Visit Provider Specialist | DX: D25.2 Subserosal leiomyoma of uterus (principal); D25.1 Intramural leiomyoma of uterus | CPT/HCPCS: 76830; 76856 ==